=== PATIENT | male | born 2005 | race African-American/Black ===

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

== ENCOUNTER 2025-01-08 08:16 | Inpatient (IN) | payer OTHER ==
[~2025-01-08] VITALS: Ht 185.4 cm; Wt 89.8 kg
[2025-01-08 08:19] VITALS: O2SAT 98
[2025-01-08] MEDS: SODIUM CHLORIDE 0.9% 1,000 ML IV ONE (08:30)
[2025-01-08] MEDS: HALOPERIDOL LACTATE 5MG/ML VIAL IM ONE (08:30)
[2025-01-08 08:56] LABS: BASOPHILS % 0.8 % (0.0-2.0); EOSINOPHILS % 1.7 % (0.0-5.0); HEMATOCRIT. 25.6 % (42.0-52.0); HEMOGLOBIN. 8.5 g/dL (14.0-18.0); LYMPHOCYTES % 21.2 % (20.0-50.0); MEAN CORPUSCULAR HEMOGLOBIN 30.2 pg (28.0-32.0); MEAN CORPUSCULAR HGB CONC 33.4 g/dL (31.0-37.0); MEAN CORPUSCULAR VOLUME 90.7 fL (80.0-94.0); MEAN PLATELET VOLUME 12.4 fl (7.4-10.4); MONOCYTES % 9.4 % (2.0-8.0); NEUTROPHILS % 66.9 % (40.0-76.0); PLATELET 55 x1000/uL (130-400); RED BLOOD CELL COUNT 2.82 mill/uL (4.7-6.1); RED CELL DISTRIBUTION WIDTH 13.2 % (11.6-14.6); WHITE BLOOD COUNT 3.2 x1000/uL (4.5-11.0)
[2025-01-08 09:13] LABS: CHLORIDE 114 mEq/L (98-107); SODIUM 146 mEq/L (136-145)
[2025-01-08 09:15] LABS: CALCIUM 7.8 mg/dL (8.7-10.4); CARBON DIOXIDE 24 mEq/L (21-32)
[2025-01-08 09:20] LABS: CREATININE 0.7 mg/dL (0.6-1.3); GLUCOSE 88 mg/dL (70-105); POTASSIUM 2.8 mEq/L (3.5-5.1); UREA NITROGEN BLOOD 8 mg/dL (9-23)
[2025-01-08 09:22] LABS: ALANINE AMINOTRANSFERASE 46 IU/L (10-49); ALBUMIN 3.4 g/dL (3.2-4.8); ASPARTATE AMINOTRANSFERASE 28 IU/L (<34); BILIRUBIN DIRECT 0.3 mg/dL (<=3.0); BILIRUBIN TOTAL 0.8 mg/dL (0.1-1.0)
[2025-01-08 09:23] LABS: PROTEIN TOTAL 5.9 g/dL (6.0-8.3)
[2025-01-08] MEDS ORDERED: BACITRACIN ZINC OINT UDPKT TOP ONE (09:30)
[2025-01-08] MEDS ORDERED: LIDOCAINE HCL/PF 1% 10 MG/ML 5ML VIAL INFIL ONE (09:30)
[2025-01-08 09:38] LABS: CLARITY URINE CLEAR (CLEAR); COLOR URINE YELLOW (YELLOW); GLUCOSE URINE NEGATIVE (NEGATIVE); KETONES URINE TRACE (NEGATIVE); LEUKOCYTE ESTERASE URINE 1+ (NEGATIVE); NITRITE URINE NEGATIVE (NEGATIVE); OCCULT BLOOD URINE NEGATIVE (NEGATIVE); PH URINE 7.5 (4.5-8.0); PROTEIN URINE TRACE (NEGATIVE); SPECIFIC GRAVITY URINE 1.029 (1.005-1.030)
[2025-01-08 09:59] LABS: SQUAMOUS EPITHELIAL CELL URINE FEW /lpf (RARE/1+)
[2025-01-08 10:03] LABS: BACTERIA URINE 2+; RBC URINE NONE SEEN /hpf (0-2)
[2025-01-08] MEDS ORDERED: METRONIDAZOLE 500 MG PREMIX 100 ML IV ONE (10:15)
[2025-01-08] MEDS ORDERED: CEFTRIAXONE SODIUM 1G VIAL IV ONE (10:15)
[2025-01-08] MEDS: POTASSIUM CHLORIDE 20MEQ/PACKET PO ONE (10:53)
[2025-01-08] MEDS: KCL 20MEQ/100ML PREMIX 100 ML IV ONE (10:53)
[2025-01-08 12:00] VITALS: BP 138/41; PULSE 68; RESP 18; TEMP 36.8; O2SAT 99
[2025-01-08] MEDS ORDERED: ACETAMINOPHEN 650MG/20.3ML UDC GT PRN ×2 (15:00)
[2025-01-08] MEDS: SODIUM CHLORIDE 0.45% 1,000 ML IV SCH (15:46)
[2025-01-08] MEDS: HYDROCODONE/ACETAMINOPHEN 5/325MG TABLET PO PRN (15:48)
[2025-01-08 16:00] VITALS: BP 134/79; PULSE 82; RESP 18; TEMP 36.3; O2SAT 96
[2025-01-08 16:06] VITALS: BP 138/41; PULSE 68; RESP 18; TEMP 36.8
[2025-01-08] MEDS: METRONIDAZOLE 500 MG PREMIX 100 ML IV SCH (16:48)
[2025-01-08] MEDS: PANTOPRAZOLE SODIUM 40 MG/VIAL IV NR (16:53)
[2025-01-08] MEDS: CEFTRIAXONE 1GM/50ML 50 ML IV SCH (18:27)
[2025-01-08 18:33] LABS: POTASSIUM 4.1 mEq/L (3.5-5.1)
[2025-01-08 20:00] VITALS: BP 136/74; PULSE 78; RESP 18; TEMP 36.8; O2SAT 98
[2025-01-09] VITALS: BP 132/78; PULSE 80; RESP 18; TEMP 36.8; O2SAT 99
[2025-01-09 04:00] VITALS: BP 130/72; PULSE 82; RESP 18; TEMP 36.9; O2SAT 98
[2025-01-09 06:28] LABS: BASOPHILS % 0.4 % (0.0-2.0); DIFFERENTIAL COMMENT 0; EOSINOPHILS % 0.9 % (0.0-5.0); HEMOGLOBIN. 13.7 g/dL (14.0-18.0); LYMPHOCYTES % 17.6 % (20.0-50.0); MEAN CORPUSCULAR HEMOGLOBIN 29.3 pg (28.0-32.0); MEAN CORPUSCULAR HGB CONC 33.3 g/dL (31.0-37.0); MEAN CORPUSCULAR VOLUME 87.8 fL (80.0-94.0); MEAN PLATELET VOLUME 11.9 fl (7.4-10.4); MONOCYTES % 9.3 % (2.0-8.0); NEUTROPHILS % 71.8 % (40.0-76.0); PLATELET 79 x1000/uL (130-400); RED BLOOD CELL COUNT 4.67 mill/uL (4.7-6.1); RED CELL DISTRIBUTION WIDTH 13.5 % (11.6-14.6)
[2025-01-09 06:31] LABS: CHLORIDE 103 mEq/L (98-107); POTASSIUM 3.7 mEq/L (3.5-5.1); SODIUM 140 mEq/L (136-145)
[2025-01-09 06:32] LABS: CALCIUM 9.6 mg/dL (8.7-10.4); CARBON DIOXIDE 25 mEq/L (21-32)
[2025-01-09 06:37] LABS: GLUCOSE 80 mg/dL (70-105); UREA NITROGEN BLOOD 6 mg/dL (9-23)
[2025-01-09] MEDS: ONDANSETRON HCL 4MG/2ML INJ IV PRN (07:10)
[2025-01-09] MEDS: PANTOPRAZOLE SODIUM 40 MG/VIAL IV SCH (09:05)
[2025-01-09 10:13] LABS: *AMPHETAMINES SCREEN URINE NEGATIVE (NEGATIVE)
[2025-01-09 10:14] LABS: *BARBITURATES SCREEN URINE NEGATIVE (NEGATIVE); *BENZODIAZEPINES SCREEN URINE NEGATIVE (NEGATIVE); *COCAINE SCREEN URINE NEGATIVE (NEGATIVE); CANNABINOID URINE SCREEN PRESUMPTIVE POSITIVE (NEGATIVE); ECSTASY MDMA SCREEN URINE NEGATIVE (NEGATIVE); METHADONE URINE SCREEN NEGATIVE (NEGATIVE); OPIATES URINE SCREEN NEGATIVE (NEGATIVE); PHENCYCLIDINE URINE SCREEN NEGATIVE (NEGATIVE)
[2025-01-09 12:08] LABS: CREATINE KINASE 609 IU/L (46-171)
== END 2025-01-09 12:20 | DRG 394 ==
LOC: ER 08:16 → 6EST 10:20 → EDBEDREQTM 10:36 → EDBEDREQ 10:36 → 6EST 12:30
PROVIDERS: ADMIT Hospitalist; ATTEND Hospitalist
DX: K35.80 Unspecified acute appendicitis (principal); D61.818 Other pancytopenia; E87.6 Hypokalemia; G40.909 Epilepsy, unspecified, not intractable, without status epilepticus; F12.90 Cannabis use, unspecified, uncomplicated; J45.909 Unspecified asthma, uncomplicated; F32.A Depression, unspecified; Z79.899 Other long term (current) drug therapy
CPT/HCPCS: 36415; 74176; 80048; 80076; 80305; 81003; 82550; 84132; 85025; 86850; 86900; 99285; J0696; J1630; J2405; J2470; J3480; J3490; J7030